=== PATIENT | female | born 1935 | race Caucasian/White ===

== ENCOUNTER 2018-03-19 08:26 | Emergency (ER) | payer OTHER ==
--- NOTE | 2018-03-19 09:04 | EDPHY ---
H & P Stated Complaint: Swollen tongue since this morning - started Renetta Saturday Time Seen by Provider: 03/19/18 08:51 HPI/ROS: CHIEF COMPLAINT: Tongue swelling HISTORY OF PRESENT ILLNESS: The patient is an 82-year-old female who has a sensation of her tongue swelling. She describes it as dry mouth that she 1st noticed after waking up this morning. She suspects that it is from a diclofenac cream that she began to use on her right knee 2 days ago. She states that she does not typically take medications. No hives. No difficulty breathing. No wheezing. No chest pain. No focal weakness. No slurred speech. Sounds as though her complaint is really dry mouth rather than swelling. Her does not think that her tongue looked swollen. She does have a reported history of aspirin allergy but does not remember what her reaction was. She states that is been decades since she had aspirin. She did not realize the diclofenac was similar. Severity: Moderate Modifying factors: None REVIEW OF SYSTEMS: Constitutional: denies: chills, fever, recent illness, recent injury EENTM: denies: blurred vision, double vision, nose congestion Respiratory: denies: cough, shortness of breath Cardiac: denies: chest pain, irregular heart rate, lightheadedness, palpitations Gastrointestinal/Abdominal: denies: abdominal pain, diarrhea, nausea, vomiting, blood streaked stools Genitourinary: denies: dysuria, frequency, hematuria, pain Musculoskeletal: denies: joint pain, muscle pain Skin: denies: lesions, rash, jaundice, bruising Neurological: denies: headache, numbness, paresthesia, tingling, dizziness, weakness Hematologic/Lymphatic: denies: blood clots, easy bleeding, easy bruising Immunologic/allergic: denies: HIV/AIDS, transplant 10 systems reviewed and negative except as noted EXAM: GENERAL: Well-appearing, well-nourished and in no acute distress. HEAD: Atraumatic, normocephalic. EYES: Pupils equal round and reactive to light, extraocular movements intact, sclera anicteric, conjunctiva are normal. ENT: TMs normal, nares patent, oropharynx clear without exudates. Moist mucous membranes. NECK: Normal range of motion, supple without lymphadenopathy or JVD. LUNGS: Breath sounds clear to auscultation bilaterally and equal. No wheezes rales or rhonchi. HEART: Regular rate and rhythm without murmurs, rubs or gallops. ABDOMEN: Soft, nontender, normoactive bowel sounds. No guarding, no rebound. No masses appreciated. BACK: No CVA tenderness, no spinal tenderness, step-offs or deformities EXTREMITIES: Normal range of motion, no pitting or edema. No clubbing or cyanosis. NEUROLOGICAL: Cranial nerves II through XII grossly intact. Normal speech, normal gait. 5/5 strength, normal movement in all extremities, normal sensation , normal reflexes able to balance on each foot. Normal cerebellar exam. PSYCH: Normal mood, normal affect. SKIN: Warm, dry, normal turgor, no visible rashes or lesions. Source: Patient Exam Limitations: No limitations - Personal History Current Tetanus Diphtheria and Acellular Pertussis (TDAP): Yes - Medical/Surgical History Hx Asthma: No Hx Chronic Respiratory Disease: No Hx Diabetes: No Hx Cardiac Disease: No Hx Renal Disease: No Hx Cirrhosis: No Hx Alcoholism: No Hx HIV/AIDS: No Hx Splenectomy or Spleen Trauma: No Other PMH: Right knee injury. Hypothyroid. - Family History Significant Family History: No pertinent family hx - Social History Smoking Status: Never smoked Alcohol Use: Sober Drug Use: None Constitutional: Initial Vital Signs Temperature (C) 36.8 C 03/19/18 08:26 Heart Rate 80 03/19/18 08:26 Respiratory Rate 18 03/19/18 08:26 Blood Pressure 190/108 H 03/19/18 08:26 O2 Sat (%) 93 03/19/18 08:26 O2 Delivery Mode Room Air Allergies/Adverse Reactions: aspirin Allergy (Verified 03/19/18 09:01) Home Medications: Medication Instructions Recorded Levothyroxine 03/19/18 Voltaren 03/19/18 Medical Decision Making ED Course/Re-evaluation: The patient has a normal exam. She has a normal neurologic exam. Her primary complaint seems to be dry mouth rather than swelling. She has no history of angioedema or significant allergic reactions. We will observe. 10:00 a.m. the patient continues to have normal exam. No visible swelling. No difficulty breathing or swallowing. We discussed switching to Tylenol or ibuprofen and said the diclofenac. She will follow up with her Dr for other options to treat her knee pain. She and her feel comfortable with this and eager to go home. We discussed indications for returning. Differential Diagnosis: Partial list of the Differential diagnosis considered include but were not limited to; medication reaction, allergic reaction and although unlikely based on the history and physical exam, I also considered anxiety, infection. I discussed these differential diagnoses and the plan with the patient as well as the usual and expected course. The patient understands that the diagnosis is provisional and that in medicine we are not always correct and that further workup is often warranted. Usual and customary warnings were given. All of the patient's questions were answered. The patient was instructed to return to the emergency department should the symptoms at all worsen or return, otherwise to followup with the physician as we discussed. Departure - Departure Disposition: Home, Routine, Self-Care Clinical Impression: Medication side effect Condition: Fair Instructions: Adverse Drug Reaction (ED) Referrals: [facility] [Other] - 2-3 days, call for appt.
[2018-03-19 10:22] VITALS: BP 128/78
== END 2018-03-19 10:20 | disposition home or self-care (01) ==
DX: R60.9 Edema, unspecified (principal); T39.395A Adverse effect of other nonsteroidal anti-inflammatory drugs [NSAID], initial encounter; E03.9 Hypothyroidism, unspecified